=== PATIENT | male | born 1965 ===

== ENCOUNTER 2025-02-12 00:41 | Outpatient (CLI) | payer BC, SELFPAY ==
[2025-02-12 10:24] LABS: Abs Immature Grans 0.04 10^3/uL (0.0-0.06); Absolute Basophil Count 0.04 10^3/uL (0.0-0.2); Absolute Eosinophil Count 0.08 10^3/uL (0.0-0.7); Absolute Lymphocyte Count 1.84 10^3/uL (1.2-3.4); Absolute Monocyte Count 0.67 10^3/uL (0.1-0.8); Absolute Neutrophil Count 5.83 10^3/uL (1.2-6.7); Basophils % 0.5 %; Eosinophils % 0.9 %; HCT 42.4 % (40.0-50.0); HGB 14.3 g/dL (13.5-17.5); Immature Grans % 0.5 %; Lymphocytes % 21.6 %; MCH 35.4 pg (27.0-33.0); MCHC 33.7 % (32.0-36.0); MCV 105 fL (80-95); MPV 8.4 fL (8.0-11.0); Monocytes % 7.9 %; Neutrophils % 68.6 %; Platelet Count 350 10^3/uL (130-400); RBC 4.04 10^6/uL (4.36-5.78); RDW 12.5 % (11.8-14.1); RDW-SD 48.6 fL
[2025-02-12 10:41] LABS: ALT 46 U/L (16-63); AST 25 U/L (15-37); Albumin 3.6 g/dL (3.4-5.0); Alkaline Phosphatase 101 U/L (46-116); Anion Gap 10.1 mmol/L (3-11); BUN 10 mg/dL (7-18); Bilirubin, Total 0.3 mg/dL (0.2-1.0); CO2 28.9 mmol/L (21.0-32.0); Chloride 104 mmol/L (98-107); Estimated GFR 87.78 (mL/min/1.73m2); Glucose 125 mg/dL (74-106); Magnesium 2.1 mg/dL (1.8-2.4); Potassium 3.9 mmol/L (3.5-5.1); Sodium 143 mmol/L (136-145); Total Protein 7.2 g/dL (6.4-8.2)
== END 2025-02-12 00:42 | disposition home or self-care (01) ==
LOC: LBO 00:41
PROVIDERS: Visit Provider Internal Medicine Medical Oncology
DX: C34.11 Malignant neoplasm of upper lobe, right bronchus or lung (principal)
CPT/HCPCS: 36415; 80053; 83735; 85025

== ENCOUNTER 2025-02-19 02:41 | Outpatient (CLI) | payer BC, SELFPAY ==
[2025-02-19 11:12] LABS: Absolute Basophil Count 0.05 10^3/uL (0.0-0.2); Absolute Eosinophil Count 0.08 10^3/uL (0.0-0.7); Absolute Lymphocyte Count 1.21 10^3/uL (1.2-3.4); Absolute Monocyte Count 0.42 10^3/uL (0.1-0.8); Absolute Neutrophil Count 5.54 10^3/uL (1.2-6.7); Basophils % 0.7 %; Eosinophils % 1.1 %; HCT 40.3 % (40.0-50.0); Immature Grans % 1.4 %; Lymphocytes % 16.4 %; MCH 35.4 pg (27.0-33.0); MCHC 34.7 % (32.0-36.0); MCV 102 fL (80-95); MPV 9.1 fL (8.0-11.0); Monocytes % 5.7 %; Neutrophils % 74.7 %; Platelet Count 288 10^3/uL (130-400); RBC 3.95 10^6/uL (4.36-5.78); RDW 11.8 % (11.8-14.1); RDW-SD 44.5 fL
[2025-02-19 11:41] LABS: ALT 57 U/L (16-63); AST 26 U/L (15-37); Albumin 3.6 g/dL (3.4-5.0); Alkaline Phosphatase 95 U/L (46-116); Anion Gap 6.4 mmol/L (3-11); BUN 15 mg/dL (7-18); Bilirubin, Total 0.8 mg/dL (0.2-1.0); CO2 31.6 mmol/L (21.0-32.0); Chloride 98 mmol/L (98-107); Estimated GFR 87.78 (mL/min/1.73m2); Glucose 106 mg/dL (74-106); Potassium 3.8 mmol/L (3.5-5.1); Sodium 136 mmol/L (136-145); Total Protein 7.2 g/dL (6.4-8.2)
== END 2025-02-19 02:42 | disposition home or self-care (01) ==
LOC: LBO 02:42
PROVIDERS: Visit Provider Internal Medicine Medical Oncology
DX: C34.11 Malignant neoplasm of upper lobe, right bronchus or lung (principal)
CPT/HCPCS: 36415; 80053; 83735; 85025

== ENCOUNTER 2025-02-26 04:27 | Outpatient (CLI) | payer BC, SELFPAY ==
[2025-02-26 10:34] LABS: Abs Immature Grans 0.03 10^3/uL (0.0-0.06); Absolute Basophil Count 0.02 10^3/uL (0.0-0.2); Absolute Eosinophil Count 0.04 10^3/uL (0.0-0.7); Absolute Lymphocyte Count 0.51 10^3/uL (1.2-3.4); Absolute Monocyte Count 0.41 10^3/uL (0.1-0.8); Absolute Neutrophil Count 2.25 10^3/uL (1.2-6.7); Basophils % 0.6 %; Eosinophils % 1.2 %; HCT 36.5 % (40.0-50.0); HGB 12.6 g/dL (13.5-17.5); Immature Grans % 0.9 %; Lymphocytes % 15.6 %; MCH 35.2 pg (27.0-33.0); MCHC 34.5 % (32.0-36.0); MCV 102 fL (80-95); MPV 9.2 fL (8.0-11.0); Monocytes % 12.6 %; Neutrophils % 69.1 %; Platelet Count 247 10^3/uL (130-400); RBC 3.58 10^6/uL (4.36-5.78); RDW 11.9 % (11.8-14.1); RDW-SD 44.1 fL; WBC 3.26 10^3/uL (4.4-10.8)
[2025-02-26 10:50] LABS: ALT 63 U/L (16-63); AST 31 U/L (15-37); Albumin 3.3 g/dL (3.4-5.0); Alkaline Phosphatase 94 U/L (46-116); Anion Gap 4.3 mmol/L (3-11); BUN 16 mg/dL (7-18); Bilirubin, Total 0.3 mg/dL (0.2-1.0); CO2 31.7 mmol/L (21.0-32.0); CREATININE 1.1 mg/dL (0.70-1.30); Calcium 8.6 mg/dL (8.5-10.1); Chloride 101 mmol/L (98-107); Glucose 120 mg/dL (74-106); Magnesium 2.1 mg/dL (1.8-2.4); Potassium 3.8 mmol/L (3.5-5.1); Sodium 137 mmol/L (136-145); Total Protein 6.9 g/dL (6.4-8.2)
== END 2025-02-26 04:28 | disposition home or self-care (01) ==
LOC: LBO 04:27
PROVIDERS: Visit Provider Internal Medicine Medical Oncology
DX: C34.11 Malignant neoplasm of upper lobe, right bronchus or lung (principal)
CPT/HCPCS: 36415; 80053; 83735; 85025

== ENCOUNTER 2025-03-05 03:51 | Outpatient (CLI) | payer BC, SELFPAY ==
[2025-03-05 09:47] LABS: Abs Immature Grans 0.03 10^3/uL (0.0-0.06); Absolute Basophil Count 0.02 10^3/uL (0.0-0.2); Absolute Eosinophil Count 0.02 10^3/uL (0.0-0.7); Absolute Lymphocyte Count 0.56 10^3/uL (1.2-3.4); Absolute Monocyte Count 0.24 10^3/uL (0.1-0.8); Absolute Neutrophil Count 3.44 10^3/uL (1.2-6.7); Basophils % 0.5 %; Eosinophils % 0.5 %; HCT 34.7 % (40.0-50.0); HGB 12.4 g/dL (13.5-17.5); Immature Grans % 0.7 %; MCH 35.8 pg (27.0-33.0); MCHC 35.7 % (32.0-36.0); MCV 100 fL (80-95); MPV 8.7 fL (8.0-11.0); Monocytes % 5.6 %; Neutrophils % 79.7 %; Platelet Count 226 10^3/uL (130-400); RBC 3.46 10^6/uL (4.36-5.78); RDW 11.9 % (11.8-14.1); RDW-SD 43.3 fL; WBC 4.31 10^3/uL (4.4-10.8)
[2025-03-05 09:56] LABS: ALT 46 U/L (16-63); AST 24 U/L (15-37); Alkaline Phosphatase 95 U/L (46-116); Anion Gap 5.2 mmol/L (3-11); BUN 12 mg/dL (7-18); Bilirubin, Total 0.3 mg/dL (0.2-1.0); CO2 31.8 mmol/L (21.0-32.0); CREATININE 0.9 mg/dL (0.70-1.30); Calcium 8.6 mg/dL (8.5-10.1); Chloride 99 mmol/L (98-107); Estimated GFR 99.62 (mL/min/1.73m2); Glucose 159 mg/dL (74-106); Magnesium 1.9 mg/dL (1.8-2.4); Potassium 3.7 mmol/L (3.5-5.1); Sodium 136 mmol/L (136-145); Total Protein 6.5 g/dL (6.4-8.2)
== END 2025-03-05 03:52 | disposition home or self-care (01) ==
LOC: LBO 03:51
PROVIDERS: Visit Provider Internal Medicine Medical Oncology
DX: C34.11 Malignant neoplasm of upper lobe, right bronchus or lung (principal)
CPT/HCPCS: 36415; 80053; 83735; 85025

== ENCOUNTER 2025-03-13 02:35 | Outpatient (CLI) | payer BC, SELFPAY ==
[2025-03-13 08:38] LABS: Abs Immature Grans 0.02 10^3/uL (0.0-0.06); Absolute Basophil Count 0.02 10^3/uL (0.0-0.2); Absolute Eosinophil Count 0.01 10^3/uL (0.0-0.7); Absolute Lymphocyte Count 0.49 10^3/uL (1.2-3.4); Absolute Monocyte Count 0.39 10^3/uL (0.1-0.8); Basophils % 0.7 %; Eosinophils % 0.3 %; HCT 33.6 % (40.0-50.0); Immature Grans % 0.7 %; Lymphocytes % 16.2 %; MCH 35.7 pg (27.0-33.0); MCHC 35.7 % (32.0-36.0); MCV 100 fL (80-95); MPV 8.6 fL (8.0-11.0); Monocytes % 12.9 %; Neutrophils % 69.2 %; Platelet Count 134 10^3/uL (130-400); RBC 3.36 10^6/uL (4.36-5.78); RDW 12.2 % (11.8-14.1); WBC 3.03 10^3/uL (4.4-10.8)
[2025-03-13 08:55] LABS: ALT 51 U/L (16-63); AST 24 U/L (15-37); Albumin 3.3 g/dL (3.4-5.0); Alkaline Phosphatase 86 U/L (46-116); Anion Gap 5.5 mmol/L (3-11); BUN 15 mg/dL (7-18); Bilirubin, Total 0.4 mg/dL (0.2-1.0); CO2 32.5 mmol/L (21.0-32.0); CREATININE 0.8 mg/dL (0.70-1.30); Chloride 100 mmol/L (98-107); Estimated GFR 103.22 (mL/min/1.73m2); Glucose 118 mg/dL (74-106); Magnesium 1.9 mg/dL (1.8-2.4); Potassium 3.4 mmol/L (3.5-5.1); Sodium 138 mmol/L (136-145); Total Protein 6.8 g/dL (6.4-8.2)
== END 2025-03-13 02:36 | disposition home or self-care (01) ==
LOC: LBO 02:35
PROVIDERS: Visit Provider Internal Medicine Medical Oncology
DX: C34.11 Malignant neoplasm of upper lobe, right bronchus or lung (principal)
CPT/HCPCS: 36415; 80053; 83735; 85025

== ENCOUNTER 2025-03-19 04:23 | Outpatient (CLI) | payer BC, SELFPAY ==
[2025-03-19 09:21] LABS: Abs Immature Grans 0.02 10^3/uL (0.0-0.06); Absolute Basophil Count 0.01 10^3/uL (0.0-0.2); Absolute Eosinophil Count 0.02 10^3/uL (0.0-0.7); Absolute Monocyte Count 0.26 10^3/uL (0.1-0.8); Absolute Neutrophil Count 2.28 10^3/uL (1.2-6.7); Basophils % 0.3 %; Eosinophils % 0.6 %; HCT 34.1 % (40.0-50.0); HGB 12.4 g/dL (13.5-17.5); Immature Grans % 0.6 %; Lymphocytes % 16.2 %; MCH 35.6 pg (27.0-33.0); MCHC 36.4 % (32.0-36.0); MCV 98 fL (80-95); MPV 8.7 fL (8.0-11.0); Monocytes % 8.4 %; Neutrophils % 73.9 %; Platelet Count 107 10^3/uL (130-400); RBC 3.48 10^6/uL (4.36-5.78); RDW 12.2 % (11.8-14.1); RDW-SD 42.9 fL; WBC 3.09 10^3/uL (4.4-10.8)
[2025-03-19 09:36] LABS: ALT 56 U/L (16-63); AST 27 U/L (15-37); Albumin 3.3 g/dL (3.4-5.0); Alkaline Phosphatase 96 U/L (46-116); Anion Gap 6.7 mmol/L (3-11); BUN 14 mg/dL (7-18); Bilirubin, Total 0.5 mg/dL (0.2-1.0); CO2 32.3 mmol/L (21.0-32.0); CREATININE 0.8 mg/dL (0.70-1.30); Chloride 98 mmol/L (98-107); Estimated GFR 102.58 (mL/min/1.73m2); Glucose 114 mg/dL (74-106); Magnesium 1.8 mg/dL (1.8-2.4); Potassium 3.5 mmol/L (3.5-5.1); Sodium 137 mmol/L (136-145)
== END 2025-03-19 04:24 | disposition home or self-care (01) ==
PROVIDERS: Visit Provider Internal Medicine Medical Oncology
DX: C34.11 Malignant neoplasm of upper lobe, right bronchus or lung (principal)
CPT/HCPCS: 36415; 80053; 83735; 85025

== ENCOUNTER 2025-05-08 03:05 | Outpatient (CLI) | payer BC, SELFPAY ==
[2025-05-08 13:05] LABS: Abs Immature Grans 0.03 10^3/uL (0.0-0.06); HCT 38.3 % (40.0-50.0); HGB 13.1 g/dL (13.5-17.5); Immature Grans % 0.4 %; MCH 37.2 pg (27.0-33.0); MCHC 34.2 % (32.0-36.0); MCV 109 fL (80-95); MPV 8.5 fL (8.0-11.0); Platelet Count 263 10^3/uL (130-400); RBC 3.52 10^6/uL (4.36-5.78); RDW 15.5 % (11.8-14.1); RDW-SD 62.1 fL; WBC 7.63 10^3/uL (4.4-10.8)
[2025-05-08 13:34] LABS: ALT 39 U/L (16-63); AST 25 U/L (15-37); Albumin 3.3 g/dL (3.4-5.0); Alkaline Phosphatase 129 U/L (46-116); Anion Gap 7.8 mmol/L (3-11); BUN 8 mg/dL (7-18); Bilirubin, Total 0.5 mg/dL (0.2-1.0); CO2 29.2 mmol/L (21.0-32.0); Calcium 8.9 mg/dL (8.5-10.1); Chloride 102 mmol/L (98-107); Estimated GFR 99.00 (mL/min/1.73m2); Glucose 111 mg/dL (74-106); Magnesium 1.9 mg/dL (1.8-2.4); Potassium 3.7 mmol/L (3.5-5.1); Sodium 139 mmol/L (136-145); TSH 1.01 uIU/mL (0.36-3.74); Total Protein 7.0 g/dL (6.4-8.2)
== END 2025-05-08 03:06 | disposition home or self-care (01) ==
LOC: LBO 03:05
PROVIDERS: Visit Provider Internal Medicine Medical Oncology
DX: C34.11 Malignant neoplasm of upper lobe, right bronchus or lung (principal); Z79.899 Other long term (current) drug therapy
CPT/HCPCS: 36415; 80053; 83735; 84439; 84443; 85025

== ENCOUNTER 2025-06-04 04:15 | Outpatient (CLI) | payer BC, SELFPAY ==
[2025-06-04 09:01] LABS: Abs Immature Grans 0.04 10^3/uL (0.0-0.06); HCT 44.5 % (40.0-50.0); HGB 15.6 g/dL (13.5-17.5); Immature Grans % 0.5 %; MCH 38.7 pg (27.0-33.0); MCHC 35.1 % (32.0-36.0); MCV 110 fL (80-95); MPV 8.4 fL (8.0-11.0); Platelet Count 269 10^3/uL (130-400); RBC 4.03 10^6/uL (4.36-5.78); RDW 11.7 % (11.8-14.1); RDW-SD 47.8 fL; WBC 7.30 10^3/uL (4.4-10.8)
[2025-06-04 09:26] LABS: ALT 54 U/L (16-63); AST 38 U/L (15-37); Albumin 3.7 g/dL (3.4-5.0); Alkaline Phosphatase 112 U/L (46-116); Anion Gap 6.9 mmol/L (3-11); BUN 9 mg/dL (7-18); Bilirubin, Total 0.4 mg/dL (0.2-1.0); CO2 33.1 mmol/L (21.0-32.0); Calcium 9.3 mg/dL (8.5-10.1); Chloride 100 mmol/L (98-107); Estimated GFR 99.00 (mL/min/1.73m2); Glucose 111 mg/dL (74-106); Magnesium 2.1 mg/dL (1.8-2.4); Potassium 4.3 mmol/L (3.5-5.1); Sodium 140 mmol/L (136-145); TSH 1.08 uIU/mL (0.36-3.74); Total Protein 7.7 g/dL (6.4-8.2)
== END 2025-06-04 04:16 | disposition home or self-care (01) ==
LOC: LBO 04:15
PROVIDERS: Visit Provider Internal Medicine Medical Oncology
DX: C34.11 Malignant neoplasm of upper lobe, right bronchus or lung (principal); Z79.899 Other long term (current) drug therapy
CPT/HCPCS: 36415; 80053; 83735; 84439; 84443; 85025

== ENCOUNTER 2025-07-02 01:49 | Outpatient (CLI) | payer BC, SELFPAY ==
[2025-07-02 13:14] LABS: Abs Immature Grans 0.05 10^3/uL (0.0-0.06); HCT 43.0 % (40.0-50.0); HGB 15.1 g/dL (13.5-17.5); Immature Grans % 0.5 %; MCH 37.2 pg (27.0-33.0); MCHC 35.1 % (32.0-36.0); MCV 106 fL (80-95); MPV 8.5 fL (8.0-11.0); Platelet Count 220 10^3/uL (130-400); RBC 4.06 10^6/uL (4.36-5.78); RDW 11.0 % (11.8-14.1); RDW-SD 43.1 fL; WBC 9.14 10^3/uL (4.4-10.8)
[2025-07-02 13:44] LABS: ALT 73 U/L (16-63); AST 45 U/L (15-37); Albumin 3.5 g/dL (3.4-5.0); Alkaline Phosphatase 105 U/L (46-116); Anion Gap 5.4 mmol/L (3-11); BUN 6 mg/dL (7-18); Bilirubin, Total 0.3 mg/dL (0.2-1.0); CO2 34.6 mmol/L (21.0-32.0); Calcium 8.9 mg/dL (8.5-10.1); Chloride 96 mmol/L (98-107); Estimated GFR 99.00 (mL/min/1.73m2); Glucose 111 mg/dL (74-106); Magnesium 1.8 mg/dL (1.8-2.4); Potassium 3.4 mmol/L (3.5-5.1); Sodium 136 mmol/L (136-145); TSH 2.66 uIU/mL (0.36-3.74); Total Protein 7.1 g/dL (6.4-8.2)
== END 2025-07-02 01:50 | disposition home or self-care (01) ==
LOC: LBO 01:49
PROVIDERS: Visit Provider Internal Medicine Medical Oncology
DX: C34.11 Malignant neoplasm of upper lobe, right bronchus or lung (principal); Z79.899 Other long term (current) drug therapy
CPT/HCPCS: 36415; 80053; 83735; 84439; 84443; 85025

== ENCOUNTER 2025-07-30 03:23 | Outpatient (CLI) | payer BC, SELFPAY ==
[2025-07-30 07:33] LABS: Abs Immature Grans 0.05 10^3/uL (0.0-0.06); HCT 46.7 % (40.0-50.0); HGB 16.4 g/dL (13.5-17.5); Immature Grans % 0.5 %; MCH 36.9 pg (27.0-33.0); MCHC 35.1 % (32.0-36.0); MCV 105 fL (80-95); MPV 8.3 fL (8.0-11.0); Platelet Count 273 10^3/uL (130-400); RBC 4.45 10^6/uL (4.36-5.78); RDW 11.4 % (11.8-14.1); RDW-SD 44.7 fL; WBC 9.12 10^3/uL (4.4-10.8)
[2025-07-30 07:55] LABS: ALT 71 U/L (16-63); AST 37 U/L (15-37); Albumin 3.5 g/dL (3.4-5.0); Alkaline Phosphatase 123 U/L (46-116); Anion Gap 8.3 mmol/L (3-11); BUN 8 mg/dL (7-18); Bilirubin, Total 0.5 mg/dL (0.2-1.0); CO2 32.7 mmol/L (21.0-32.0); Calcium 8.9 mg/dL (8.5-10.1); Chloride 97 mmol/L (98-107); Estimated GFR 87.24 (mL/min/1.73m2); Glucose 110 mg/dL (74-106); Magnesium 2.1 mg/dL (1.8-2.4); Potassium 3.7 mmol/L (3.5-5.1); Sodium 138 mmol/L (136-145); TSH 1.98 uIU/mL (0.36-3.74); Total Protein 7.4 g/dL (6.4-8.2)
== END 2025-07-30 03:24 | disposition home or self-care (01) ==
PROVIDERS: Visit Provider Internal Medicine Medical Oncology
DX: C34.11 Malignant neoplasm of upper lobe, right bronchus or lung (principal); Z79.899 Other long term (current) drug therapy
CPT/HCPCS: 36415; 80053; 83735; 84439; 84443; 85025

== ENCOUNTER 2025-08-27 03:21 | Outpatient (CLI) | payer BC, SELFPAY ==
[2025-08-27 09:20] LABS: Abs Immature Grans 0.04 10^3/uL (0.0-0.06); HCT 44.9 % (40.0-50.0); HGB 16.2 g/dL (13.5-17.5); Immature Grans % 0.4 %; MCH 36.6 pg (27.0-33.0); MCHC 36.1 % (32.0-36.0); MCV 101 fL (80-95); MPV 8.3 fL (8.0-11.0); Platelet Count 264 10^3/uL (130-400); RBC 4.43 10^6/uL (4.36-5.78); RDW 11.8 % (11.8-14.1); RDW-SD 44.1 fL; WBC 9.38 10^3/uL (4.4-10.8)
[2025-08-27 10:00] LABS: ALT 66 U/L (16-63); AST 37 U/L (15-37); Albumin 3.4 g/dL (3.4-5.0); Alkaline Phosphatase 112 U/L (46-116); Anion Gap 10.4 mmol/L (3-11); BUN 7 mg/dL (7-18); Bilirubin, Total 0.7 mg/dL (0.2-1.0); CO2 30.6 mmol/L (21.0-32.0); Calcium 8.7 mg/dL (8.5-10.1); Chloride 94 mmol/L (98-107); Glucose 112 mg/dL (74-106); Magnesium 1.9 mg/dL (1.8-2.4); Potassium 3.4 mmol/L (3.5-5.1); Sodium 135 mmol/L (136-145); TSH 1.53 uIU/mL (0.36-3.74); Total Protein 7.2 g/dL (6.4-8.2)
== END 2025-08-27 03:22 | disposition home or self-care (01) ==
LOC: LBO 03:21
PROVIDERS: Visit Provider Internal Medicine Medical Oncology
DX: C34.11 Malignant neoplasm of upper lobe, right bronchus or lung (principal); Z79.899 Other long term (current) drug therapy
CPT/HCPCS: 36415; 80053; 83735; 84439; 84443; 85025

== ENCOUNTER 2025-09-25 01:23 | Outpatient (CLI) | payer BC, SELFPAY ==
[2025-09-25 08:09] LABS: Abs Immature Grans 0.07 10^3/uL (0.0-0.06); HCT 48.3 % (40.0-50.0); HGB 17.1 g/dL (13.5-17.5); Immature Grans % 0.7 %; MCH 36.9 pg (27.0-33.0); MCHC 35.4 % (32.0-36.0); MCV 104 fL (80-95); MPV 8.2 fL (8.0-11.0); Platelet Count 311 10^3/uL (130-400); RBC 4.63 10^6/uL (4.36-5.78); RDW 11.8 % (11.8-14.1); RDW-SD 46.0 fL; WBC 9.62 10^3/uL (4.4-10.8)
[2025-09-25 08:25] LABS: Magnesium 2.0 mg/dL (1.6-2.6)
[2025-09-25 08:27] LABS: ALT 76 U/L (10-49); AST 44 U/L (<34); Albumin 4.7 g/dL (3.2-5.0); Alkaline Phosphatase 113 U/L (46-116); Anion Gap 5.5 mmol/L (3-11); BUN 8 mg/dL (9-23); Bilirubin, Total 0.60 mg/dL (0.2-1.2); CO2 33.3 mmol/L (20.0-31.0); Calcium 9.5 mg/dL (8.3-10.6); Chloride 98 mmol/L (98-107); Glucose 101 mg/dL (74-106); Potassium 4.0 mmol/L (3.5-5.1); Sodium 137 mmol/L (136-145); Total Protein 7.8 g/dL (5.7-8.2)
[2025-09-25 08:30] LABS: TSH 3.81 uIU/mL (0.55-4.78)
== END 2025-09-25 01:24 | disposition home or self-care (01) ==
LOC: LBO 01:23
PROVIDERS: Visit Provider Internal Medicine Medical Oncology
DX: C34.11 Malignant neoplasm of upper lobe, right bronchus or lung (principal); Z79.899 Other long term (current) drug therapy
CPT/HCPCS: 36415; 80053; 83735; 84439; 84443; 85025